=== PATIENT | female | born 1985 | race Caucasian/White ===

== ENCOUNTER 2024-08-12 14:15 | Outpatient (CLI) | payer MEDICAID, SELFPAY ==
--- NOTE | 2024-08-12 10:12 | DI.RAD_ITS ---
Exam(s) XR KNEE RT 3V AP,LAT,KAYLEIGH EXAM: XR KNEE RT 3V AP,LAT,KAYLEIGH CLINICAL HISTORY: Pain and swelling right knee,m25.561,m25.461. TECHNIQUE: 2D digital imaging was performed. Three views. COMPARISON: CR RIGHT KNEE 3 VIEWS from 11/15/2014 CR RIGHT KNEE COMPLETE from 04/25/2015 FINDINGS: BONES: No acute fracture is present. No bony destructive lesion is seen. Screws in distal femur and proximal tibia related to ACL repair. High-density material noted in the lateral tibial metaphysis. Mild deformity related to old lateral tibial plateau fracture. JOINTS: The knee is normally aligned. No joint effusion is seen. Mild narrowing of the medial femora l tibial joint space. Mild periarticular spurring throughout. SOFT TISSUE: Normal. IMPRESSION: Mild degenerative changes. Prior ACL repair. Old lateral tibial plateau fracture. DATA REPOSITORY: RADIATION DOSE DELIVERED:
== END 2024-08-12 14:35 ==
LOC: DI 14:15
PROVIDERS: PCP Nurse Practitioner Family; Visit Provider Nurse Practitioner Family
DX: M25.561 Pain in right knee (principal); M25.461 Effusion, right knee
CPT/HCPCS: 73562

== ENCOUNTER 2024-09-09 02:28 | Outpatient (CLI) | payer MEDICAID, SELFPAY ==
--- NOTE | 2024-09-09 07:15 | DI.MRI_ITS ---
Exam(s) MR LOWER JOINT RT WO EXAM: MR LOWER JOINT RT WO CLINICAL HISTORY: ? meniscus tear,PAIN, SWELLING, RT KNEE,M25.461,M25.561. TECHNIQUE: Multiplanar multisequence MRI was performed. COMPARISON: CR RIGHT KNEE 3 VIEWS from 11/15/2014 CR RIGHT KNEE COMPLETE from 04/25/2015 CR XR KNEE RT 3V AP,LAT,KAYLEIGH from 08/12/2024 FINDINGS: BONES: There is no fracture or contusion pattern. There is a chronic deformity seen in the lateral ti bial plateau. This is been is present on prior x-ray examinations. JOINTS: There is thinning of the articular cartilage overlying the lateral tibial plateau. No effusi on is present. TENDONS: Extensor mechanism: Unremarkable. Medial retinaculum: Unremarkable. Lateral retinaculum: Unremarkable. Popliteus: Unremarkable. MUSCLES: Unremarkable. MENISCI: The medial meniscus is unremarkable. There is hyperintense signal seen in the anterior horn of the lateral meniscus which may represent a tear. The lateral meniscus is otherwise unremarkable. SOFT TISSUES: Unremarkable. LIGAMENTS: Anterior Cruciate: The patient has had a prior anterior cruciate ligament repair. The ligament is in tact. Posterior Cruciate: Unremarkable. Medial Collateral:Unremarkable. Lateral Collateral: Unremarkable. OTHER: IMPRESSION: 1. There is abnormal signal seen in the anterior horn of the lateral meniscus suspicious for tear palak alexia degeneration. 2. Findings of a prior anterior cruciate ligament repair. No evidence of a ligament tear. 3. Posttraumatic changes involving the lateral tibial plateau. DATA REPOSITORY:
== END 2024-09-09 02:48 ==
LOC: DI 02:28
PROVIDERS: PCP Nurse Practitioner Family; Visit Provider Nurse Practitioner Family
DX: M25.561 Pain in right knee (principal); M25.461 Effusion, right knee
CPT/HCPCS: 73721

== ENCOUNTER 2024-10-08 03:28 | Outpatient (CLI) | payer MEDICAID, SELFPAY ==
[2024-10-08 13:05] LABS: Hemoglobin A1C 5.1 % (<5.7)
[2024-10-08 13:10] LABS: BUN 13 mg/dL (7-18); CREATININE 0.7 mg/dL (0.55-1.02); Calcium 9.1 mg/dL (8.5-10.1); Calculated LDL 98 mg/dL (<100); Chloride 104 mmol/L (98-107); Cholesterol 199 mg/dL (<200); Estimated GFR 114.88 (mL/min/1.73m2); Glucose 83 mg/dL (74-106); HDL Cholesterol 89 mg/dL (40-60); Sodium 140 mmol/L (136-145); TSH (W/Ref FT4) 1.94 uIU/mL (0.36-3.74); Triglyceride 63 mg/dL (<150)
== END 2024-10-08 03:29 | disposition home or self-care (01) ==
LOC: LOS 03:28
PROVIDERS: PCP Nurse Practitioner Family; Visit Provider Nurse Practitioner Family
DX: Z00.00 Encounter for general adult medical examination without abnormal findings (principal)
CPT/HCPCS: 36415; 80048; 80061; 83036; 84443

== ENCOUNTER 2024-10-20 03:14 | Outpatient (CLI) | payer MEDICAID, SELFPAY ==
--- NOTE | 2024-10-20 07:30 | DI.CT_ITS ---
Exam(s) CT SINUS WO EXAM: CT SINUS WO CLINICAL HISTORY: chronic rhinosinusitis,j32.9. TECHNIQUE: Imaging Protocol: Axial computed tomography images with coronal and sagittal reformatted images were created and reviewed. No IV Contrast COMPARISON: No exams were available for comparison FINDINGS: MAXILLARY SINUSES: There is some mucosal thickening in the floor of the left maxillary sinus. Right lesser amount of mu cosal thickening is noted in the right maxillary sinus.There are no fluid levels in the maxillary sin uses. There is no evidence of bone dehiscence. OSTIOMEATAL UNITS: Patent bilaterally ETHMOIDAL AIR CELLS: Well aerated. No mucosal thickening nor fluid levels. SPHENOID SINUSES: Well aerated. No mucosal thickening nor fluid levels. FRONTAL SINUSES: Well aerated. No mucosal thickening nor fluid levels. NASAL SEPTUM AND TURBINATES:Nasal septum is midline with no evidence of significant nasal septal spur . There is no evidence of satnam bullosa. MASTOID AIR CELLS: Clear. No effusions. IMPRESSION: 1. There is mild mucosal thickening in the maxillary sinuses, slightly more so on the left side. Th ere are no associated fluid levels nor bone dehiscence. The ostiomeatal units are patent bilaterally . 2. No other significant findings in the paranasal sinuses. RADIATION DOSE DELIVERED: 154.43mGy.cm Total DLP DATA REPOSITORY: All CT scans at this facility are submitted to the National Radiology Data Registry (NRDR) Dose Index Registry (DIR) with the [employer] ([employer]). RADIATION OPTIMIZATION: All CT scans at this facility use at least one of these dose optimization te chniques: automated exposure control; mA and/or kV adjustment per patient size (includes targeted exa ms where dose is matched to clinical indication); or iterative reconstruction.
== END 2024-10-20 03:34 ==
LOC: DI 03:14
PROVIDERS: PCP Nurse Practitioner Family; Visit Provider Nurse Practitioner Family
DX: J32.9 Chronic sinusitis, unspecified (principal)
CPT/HCPCS: 70486

== ENCOUNTER 2025-01-21 05:59 | Day surgery (SDC) | payer MEDICAID, SELFPAY ==
[2025-01-21 06:23] VITALS: BP 124/96; PULSE 82; RESP 18; TEMP 36.5; O2SAT 97
[2025-01-21] MEDS: Cephalexin 500 MG CAP 1000 MG PO (07:08)
--- NOTE | 2025-01-21 07:09 | W.PM.DSUDISC ---
Date of service: 01/21/25 Discharge Plan Disposition Patient Disposition: Home Condition: Good Discharge Details Reason For Visit: R ECTR Attending Provider: Jeremias Trujillo Primary Care Provider: Jesusita Crum Home Meds and New Rx's Prescriptions: New acetaminophen 500 mg tablet 1,000 mg PO TID Qty: 90 0RF ibuprofen 600 mg tablet 600 mg PO TID PRN (Reason: pain) Qty: 90 0RF Continued albuterol sulfate 90 mcg/actuation aerosol powdr breath activated 2 inh inhalation Q6H PRN Discharge Instructions Stand Alone Forms: Cassandra Richmond Tunnel Release Activity:: Activity as Tolerated Remove Dressings/Wound Care:: 48 hours Shower/Bathe:: 48 hours Diet:: As Tolerated Discharge Orders Discharge Orders: Discharge Order (Routine); Ordered 01/21/25 Ordered By: Abe Andrews DS: Diagnosis Discharge Diagnosis (1) Bilateral carpal tunnel syndrome: Status: Chronic
[2025-01-21] MEDS: Lidocaine 1% Multi-Dose W/EPI 1/100,000 50 ML VIAL (07:43)
[2025-01-21] MEDS: Sodium Bicarbonate 50 MEQ/50 ML VIAL (07:44)
[2025-01-21 07:53] VITALS: BP 143/109; PULSE 76; RESP 18; TEMP 36.3; O2SAT 100
--- NOTE | 2025-01-21 10:54 | W.PM.OP ---
Operative Note Operative Note PRE-OP DIAGNOSIS: Right Carpal Tunnel Syndrome POST-OP DIAGNOSIS: same PROCEDURE: Right Endoscopic Carpal Tunnel Release SURGEON: Jeremias Trujillo ANESTHESIA TYPE: Local By Surgeon Refer to Anesthesia Record ESTIMATED BLOOD LOSS: 0 PATHOLOGY: none sent TOURNIQUET TIME: 7 COMPLICATIONS: None Patient was transported to: same day Patient's condition: stable Indications: I have seen Agnieszka in clinic for symptoms of carpal tunnel syndrome. The numbness, tingling, and pain limited function. Clinical exam findings with nerve conduction tests confirmed the diagnosis of carpal tunnel syndrome. Nonoperative measures such as bracing, time, activity modifications had been tried but disability and pain persisted. I discussed carpal tunnel release with the patient. I reviewed the risks of the procedure to include, but not limited to, bleeding, infection, pain, stiffness, incomplete release, damage to nerves or vessels, persistent numbness, recurrence. Despite these risks, the patient elected to proceed. Findings: There was tightened carpal tunnel. This was dilated and released successfully with the endoscopic with increased space within the tunnel. The antebrachial fascia was released proximally freeing the median nerve at the wrist. Procedure Description: Agnieszka was greeted in the preoperative holding area where the correct side was identified and marked. The consent was reviewed with the patient and signed. The history and physical was updated. All questions were answered. Agnieszka was taken back to the operating room. The patient was placed into the supine position on the operating room table with the right arm on an arm board. A nonsterile tourniquet was placed high onto the arm. All bony prominences were well padded. Prophylactic antibiotics in the form of Cephalexin were administered. The right arm was then prepped with Chloraprep and draped in a standard fashion with stockinette and extremity drape. A timeout to confirm correct identity, side and site, procedure, allergies, anesthesia, and medical concerns was performed. The surgical site was marked in the volar wrist creases in line with the radial border of the fourth ray. This area was anesthetized with approximately 6cc of 1% Lidocaine. The limb was then exsanguinated with an Esmarch. The skin was incised with a 15 blade, approximately 1cm. The skin only was cut and the deeper tissue was dissected bluntly with a tenotomy scissor, avoiding passing nerve and venous structures. The fascia was penetrated and opened bluntly. A two-prong skin hook was placed under this proximal fascial edge. A series of hamate finders were used to identify and dilate the carpal tunnel. Synovial elevator was used to free synovial attachments to the underside of the transverse carpal ligament. My thumb was kept in the palm to luis the distal extent of the carpal tunnel and correctly position the hand. The [employer] endoscope was inserted without difficulty and without resistance. Excellent visualization showed horizontally running fibers of the transverse carpal ligament (TCL). The distal extent of the TCL was visualized and the end of the scope palpated with the thumb. The blade was elevated and withdrawn from distal to proximal. The TCL was split into two flaps. The endoscope was reinserted to confirm complete release and any remnant ligament was incised. The scope was withdrawn and the proximal aspect of the carpal tunnel was grossly inspected and appeared release with the median nerve visible. The antebrachial fascia at the level of the wrist was then freed from the overlying skin and then the underlying median nerve with blunt dissection. This was transected longitudinally for about 3cm proximal to the wrist incision. The wound was then irrigated with easy flow of irrigant distally and proximally. The incision was closed with a single 4-0 Nylon suture. The wound was dressed with Xeroform, Gauze, Kerlix and Jason. The tourniquet was deflated with the initial dressing and held with some pressure. Blood flow returned easily to all digits with capillary refill less than 2 seconds. The patient tolerated the procedure well and was returned to the Same Day Surgery area in a stable condition suffering no known complication. Date of Procedure: 01/21/25
== END 2025-01-21 08:06 | disposition home or self-care (01) ==
PROVIDERS: PCP Nurse Practitioner Family; Visit Provider Student in an Organized Health Care Education/Training Program
PROC: 01N54ZZ Release Median Nerve, Percutaneous Endoscopic Approach (ICD-10-PCS; CPT 29848; principal; 2025-01-21 07:30)
DX: G56.01 Carpal tunnel syndrome, right upper limb (principal); G56.03 Carpal tunnel syndrome, bilateral upper limbs
CPT/HCPCS: 29848; 81025; J2004